=== PATIENT | male | born 2000 | race Two or more races ===

== ENCOUNTER 2024-10-05 08:25 | Emergency (ER) | payer OTHER ==
[~2024-10-05] VITALS: Ht 157.5 cm; Wt 56.7 kg
[2024-10-05 10:10] LABS: BASO % 0.6 % (0.1-1.2); EOS # 0.23 (0.04-0.54); EOS % 2.5 % (0.7-7.0); LYMPH # 3.10 (1.18-3.74); LYMPH % 33.3 % (19.3-53.1); MEAN PLATELET VOLUME 9.80 fl (9.4-12.4); MONO # 0.52 (0.24-0.82); MONO % 5.6 % (4.7-12.5); NEUT # 5.35 (1.56-6.13); NEUT % 57.4 % (34.0-71.1); RED CELL DISTRIBUTION WIDTH 11.3 % (11.6-14.4)
[2024-10-05 11:21] LABS: ALT/SGPT 32.0 U/L (12-78); AST/SGOT 17.0 U/L (15-37); BILIRUBIN TOTAL 0.85 mg/dL (0.3-1.2); BUN CREA RATIO 16.0 (7.0-25.0); CHOL HDL RATIO 3.7 (0-5.0); CREATININE SERUM 0.92 mg/dL (0.70-1.30); GFR 101.07; GLOBULINA 4.3 G/DL (2.4-3.5); GLUCOSE FASTING 96.0 mg/dL (65-100); HDL 52.0 mg/dl (40-60); LDL 122.0 mg/dl (0-130); OSMOLALITY SERUM 282.0 MOSM/KG (275-295); VLDL 17.0 (0-39)
[2024-10-05 11:22] LABS: TSH 0.323 uIU/mL (0.358-3.74)
== END 2024-10-05 14:36 | disposition home or self-care (01) ==
LOC: ER 08:25
DX: S93.401A Sprain of unspecified ligament of right ankle, initial encounter (principal); X58.XXXA Exposure to other specified factors, initial encounter; Y93.B9 Activity, other involving muscle strengthening exercises; Y92.89 Other specified places as the place of occurrence of the external cause; Y99.9 Unspecified external cause status